=== PATIENT | female | born 1950 | race Hispanic/Latino ===

== ENCOUNTER 2019-02-09 14:49 | Emergency (ER) | payer OTHER ==
[~2019-02-09 14:49] MED LIST: ALEN70TA10 PO; AMLO2.5T4 PO; NAPR-1023 PO
[2019-02-09] MEDS ORDERED: OCTYL 2-CYANOACRYLATE 1 EACH TP ONE (15:48)
== END 2019-02-09 16:23 | disposition home or self-care (01) ==
LOC: EDH 14:49
DX: S61.214A Laceration without foreign body of right ring finger without damage to nail, initial encounter (principal); Z88.8 Allergy status to other drugs, medicaments and biological substances; W26.0XXA Contact with knife, initial encounter; Y93.G3 Activity, cooking and baking; Y92.098 Other place in other non-institutional residence as the place of occurrence of the external cause; Y99.8 Other external cause status
CPT/HCPCS: 12001; 73140

== ENCOUNTER 2023-06-24 06:16 | Day surgery (SDC) | payer OTHER ==
[2023-06-21 14:30] VITALS: BP 115/59; PULSE 102; RESP 18
[2023-06-24] VITALS (9 sets, daily range): BP systolic 108–128; BP diastolic 55–69; PULSE 92–110; RESP 14–20
[~2023-06-24] VITALS: Ht 149.9 cm; Wt 61.4 kg
[~2023-06-24 06:16] MED LIST changes: -ALEN70TA10 PO; +HYDR-4060 PO; +LACT10SO76 PO; -NAPR-1023 PO; +PANT40TA54 PO
[2023-06-24] MEDS ORDERED: 0.9%NACL 1000ML 1,000 ML IV ONE (09:00)
[2023-06-24] MEDS ORDERED: PROPOFOL 10 MG/ML 20ML VIAL IV ONE (09:22)
== END 2023-06-24 10:40 | disposition home or self-care (01) ==
LOC: ENDO 06:16 → DAH 06:16 → ENDO 10:40
PROVIDERS: ATTEND Internal Medicine Gastroenterology
DX: K74.69 Other cirrhosis of liver (principal); I85.10 Secondary esophageal varices without bleeding; K31.89 Other diseases of stomach and duodenum; K85.00 Idiopathic acute pancreatitis without necrosis or infection; I10 Essential (primary) hypertension; K44.9 Diaphragmatic hernia without obstruction or gangrene; K59.04 Chronic idiopathic constipation; Z80.0 Family history of malignant neoplasm of digestive organs; Z86.010 Personal history of colon polyps; Z86.19 Personal history of other infectious and parasitic diseases; Z85.72 Personal history of non-Hodgkin lymphomas; Z91.013 Allergy to seafood
CPT/HCPCS: 43244; J7030 ×2; J2704; A4620; A4215 ×2; A4223; A7002; A4222; A4221; A4663; A4606; J3490

== ENCOUNTER → 2023-07-14 | Outpatient (CLI) | payer OTHER ==
[~2023-07-14] MED LIST changes: +ALBUMIN (HUMAN) 25% 200 ML IV SCH; +ALEN70TA85 PO; +FURO40TA5 PO; +SPIR100T5 PO
[2023-07-14 09:43] LABS: BASOPHILS # (AUTO) 0.01 K/uL (0.00-0.20); BASOPHILS % (AUTO) 0.2 % (0.0-5.0); EOSINOPHILS # (AUTO) 0.03 K/uL (0.00-0.70); EOSINOPHILS % (AUTO) 0.7 % (0.0-8.0); HEMATOCRIT 31.9 % (36-48); IMMATURE GRANULOCYTE ABSOLUTE 0.02 K/uL (0-1); LYMPHOCYTES # (AUTO) 0.9 K/uL (1.0-4.8); LYMPHOCYTES % (AUTO) 19.6 % (21.0-51.0); MEAN CORPUSCULAR HEMOGLOBIN 26.2 pg (27.0-33.0); MEAN CORPUSCULAR VOLUME 84.4 fL (79-99); MONOCYTES # (AUTO) 0.8 K/uL (0.1-1.0); NEUTROPHILS # (AUTO) 2.7 K/uL (1.8-7.7); PLATELET COUNT (AUTO) 143 K/uL (130-400); RED BLOOD CELL COUNT(AUTO) 3.78 MIL/uL (4.00-5.50); RED CELL DISTRIBUTION WIDTH 19.9 % (11.0-15.5); WHITE BLOOD COUNT (AUTO) 4.4 K/uL (4.8-10.8)
[2023-07-14 09:54] LABS: INR 1.19 (0.85-1.15); PROTHROMBIN TIME 13.7 SEC (9.6-11.6)
[2023-07-14 09:55] LABS: PARTIAL THROMBOPLASTIN TIME 27.2 SEC (26.3-35.5)
[2023-07-14 10:03] LABS: ALBUMIN 2.9 g/dL (3.5-5.0); BILIRUBIN,TOTAL 3.4 mg/dL (0.2-1.0); CREATININE 1.3 mg/dL (0.5-1.5); POTASSIUM 4.5 mmol/L (3.5-5.1); TOTAL PROTEIN, SERUM 6.9 g/dL (6.0-8.3)
[2023-07-14 14:39] LABS: BODY FLUID RBC 250 /cu. mm.; BODY FLUID WBC 115 /cu. mm.
[2023-07-14 14:41] LABS: APPEARANCE BODY FLUID CLEAR (CLEAR); COLOR,BODY FLUID YELLOW (LT YELLOW); SPECIMENTYPE,BODY FLUID ASCITES; TOTAL VOLUME,BODY FLUID 7900 mL
[2023-07-14 14:49] LABS: ALBUMIN,BODY FLUID < 0.6 g/dL; TOTAL PROTEIN,BODY FLUID < 2.0 g/dL
[2023-07-14 15:22] LABS: BF LYMPHOCYTE 13 %; BF MACROPHAGE 74; BF MESOTHELIAL 1 %; BF OTHER CELLS 4; BF TOTAL CELLS COUNTED 100
== END | disposition home or self-care (01) ==
LOC: RAH 08:49
PROVIDERS: ATTEND Internal Medicine Gastroenterology
DX: R18.8 Other ascites (principal); K74.69 Other cirrhosis of liver; I10 Essential (primary) hypertension; I85.10 Secondary esophageal varices without bleeding; B18.2 Chronic viral hepatitis C; K59.04 Chronic idiopathic constipation; K44.9 Diaphragmatic hernia without obstruction or gangrene; Z85.72 Personal history of non-Hodgkin lymphomas; Z79.01 Long term (current) use of anticoagulants; Z79.899 Other long term (current) drug therapy; Z80.0 Family history of malignant neoplasm of digestive organs
CPT/HCPCS: 49083; 84157; 80053; 85025; 89051; 85610; 85730; 87071; 87205; 82042; 36415; 88305; 88112; P9046; C1729; 96365

== ENCOUNTER → 2023-07-23 | Outpatient (CLI) | payer OTHER ==
[~2023-07-23] MED LIST changes: -ALBUMIN (HUMAN) 25% 200 ML IV SCH
== END | disposition home or self-care (01) ==
LOC: LAB 10:16
PROVIDERS: ATTEND Internal Medicine Gastroenterology
DX: K74.60 Unspecified cirrhosis of liver (principal)
CPT/HCPCS: 36415; 82140

== ENCOUNTER → 2023-07-26 | Outpatient (CLI) | payer OTHER ==
[~2023-07-26] MED LIST changes: +ALBUMIN (HUMAN) 25% 200 ML IV SCH
[2023-07-26 13:50] LABS: ALBUMIN,BODY FLUID < 0.6 g/dL; TOTAL PROTEIN,BODY FLUID < 2.0 g/dL
[2023-07-26 14:24] LABS: APPEARANCE BODY FLUID CLEAR (CLEAR); COLOR,BODY FLUID YELLOW (LT YELLOW); SPECIMENTYPE,BODY FLUID ASCITES; TOTAL VOLUME,BODY FLUID 5000 mL
[2023-07-26 14:30] LABS: BODY FLUID RBC 146 /cu. mm.; BODY FLUID WBC 83 /cu. mm.
[2023-07-26 14:52] LABS: BF BASOPHIL 1 %; BF LYMPHOCYTE 26 %; BF MESOTHELIAL 57 %; BF MONOCYTE 14 %; BF TOTAL CELLS COUNTED 100
== END | disposition home or self-care (01) ==
LOC: RAH 07:27
PROVIDERS: ATTEND Internal Medicine Gastroenterology
DX: R18.8 Other ascites (principal); K74.69 Other cirrhosis of liver; I85.10 Secondary esophageal varices without bleeding; I10 Essential (primary) hypertension; D64.9 Anemia, unspecified; R77.2 Abnormality of alphafetoprotein; K59.04 Chronic idiopathic constipation; Z79.01 Long term (current) use of anticoagulants; Z79.899 Other long term (current) drug therapy; Z86.19 Personal history of other infectious and parasitic diseases; Z86.010 Personal history of colon polyps; Z80.0 Family history of malignant neoplasm of digestive organs
CPT/HCPCS: 49083; 84157; 89051; 87071; 87076; 87205; 82042; 88305; 88112; C1729; 96365

== ENCOUNTER → 2023-08-10 | Outpatient (CLI) | payer OTHER ==
[~2023-08-10] MED LIST changes: -ALBUMIN (HUMAN) 25% 200 ML IV SCH; +GADOTERATE MEGLUMINE 5 MMOL/10 ML VIAL IV ONE
== END | disposition home or self-care (01) ==
LOC: RAH 14:28
PROVIDERS: ATTEND Internal Medicine Gastroenterology
DX: N28.1 Cyst of kidney, acquired (principal); R16.2 Hepatomegaly with splenomegaly, not elsewhere classified; R77.2 Abnormality of alphafetoprotein; K74.60 Unspecified cirrhosis of liver; R18.8 Other ascites
CPT/HCPCS: 74183; A9575